=== PATIENT | female | born 1980 | race Caucasian/White ===

== ENCOUNTER 2024-07-19 12:47 | Emergency (ER) | payer OTHER, SELFPAY ==
[2024-07-19 13:04] VITALS: BP 178/104
[2024-07-19 13:29] LABS: Urine Albumin 2+ (Neg - Trace); Urine Bilirubin Negative (Negative); Urine Character Clear (Clear); Urine Color Yellow; Urine Glucose Negative (Negative); Urine Ketone Negative (Negative); Urine Leukocyte 3+ (Negative); Urine Nitrite Negative (Negative); Urine Occult Blood 4+ (Negative); Urine Specific Gravity 1.025 (<1.030); Urine Urobilinogen Negative (Neg - 1+)
[2024-07-19 13:49] LABS: Urine Mucus Few; Urine Squamous Cell 26-30 /LPF (Few)
[2024-07-19 13:50] LABS: Urine Bacteria Moderate (Negative)
--- NOTE | 2024-07-19 14:32 | ED.GENMED ---
History of Present Illness
General
Chief Complaint: Flank Pain
Source: patient
Time Seen by Provider: 07/19/24 14:01
History of Present Illness
History of Present Illness:
44-year-old female presents to the emergency room complaining of left flank pain. Pain began 2 to 3 days ago. The pain waxes and wanes in intensity. She has associated nausea. No fever. Patient states she has a history of immuno suppression and
receives infusions of IVIG. Also has a history of lymphoma.
Phy Exam
Physical Exam
Physical Exam:
General: Awake, Alert, Oriented X3. No acute distress. High BMI
Vitals: Hypertension
Head: Atraumatic
Eyes: Pupils equal, EOMI
Throat: Airway intact, no exudates
Neck: Trachea midline
Lungs: Clear and equal b/l
Heart: Regular rate, no murmurs
Abd: Soft, left upper quadrant tenderness to palpation, No pulsatile mass
Back: Positive CVA tenderness to percussion on the left
Neuro: Nonfocal
Skin: Warm, dry, no rash
Extremities: pulses equal b/l, no edema
Course
Orders/Labs/Results
Orders:
Orders
07/19/24 12:59
Urinalysis Reflex To Culture Urgent
Date Specimen was Collected: 07/19/24
Time Specimen was Collected: 12:49
Urine Microscopic Reflex Cult Urgent
Urine Culture Urgent
CESAR Source: U
Specimen Description:
Date Specimen was Collected: 07/19/24
Time Specimen was Collected: 12:49
07/19/24 14:31
CT Abd/pel Without Iv Or Oral Urgent
Comment:
Reason For Exam: left flank pain
07/19/24 15:16
Basic Metabolic Panel Urgent
Complete Blood Count/With Diff Urgent
HCG, Serum Qualitative Screen Urgent
Comment: ADD ON
07/19/24 15:19
Add On- LAB Urgent
Tests Added?: qual hcg
07/19/24 18:35
Cephalexin Monohydrate [Keflex] 500 mg PO NOW STA
Abnormal Lab Results
07/19/24 07/19/24
12:59 15:16
WBC 3.0 L 10^3/uL
(4.8-10.8)
Hct 35.9 L %
(37.0-47.0)
MCV 80.0 L fL
(81.0-99.0)
RDW 16.8 H %
(11.5-14.5)
Plt Count 72 L 10^3/uL
(130-400)
MPV 10.8 H fL
(7.4-10.4)
Absolute Lymphs (auto) 0.6 L 10^3/uL
(1.2-3.4)
Immature Gran % 1.3 H %
(0-0.5)
Lymphocytes % 19.4 L %
(20.5-51.1)
Chloride 108 H mmol/L
(98-107)
Glucose 107 H mg/dl
(70-99)
Ur Occult Blood Reflex 4+ A
(Negative)
Leukocyte Esterase Rfl 3+ A
(Negative)
Urine RBC 7-10 A /HPF
(0-2)
Urine Bacteria (Reflex) Moderate A
(Negative)
Urine Albumin (Reflex) 2+ A
(Neg - Trace)
07/19/24 15:16
07/19/24 15:16
Vital Signs
Initial and Last Documented VS:
Initial Vital Signs
Temp Pulse Resp BP Pulse Ox
98.5 F 79 17 178/104 96
07/19/24 13:04 07/19/24 13:04 07/19/24 13:04 07/19/24 13:04 07/19/24 13:04
Last Documented Vital Signs
Temp Pulse Resp BP Pulse Ox
98.5 F 81 20 150/82 97
07/19/24 13:04 07/19/24 15:26 07/19/24 15:26 07/19/24 19:00 07/19/24 15:26
MDM/Problems Addressed
Differential Diagnosis Includes:
Kidney stone, muscle strain, urinary tract infection, pyelonephritis
MDM/Problems Addressed:
Patient presents with left flank pain. Workup here shows a mildly low white count which is consistent with her previous labs. Renal function is normal. Urine shows some blood a few WBCs but also a fair amount of squamous epithelial cells. CT
obtained which does not show any acute abnormalities. CT did note nodules which require follow-up. Patient has had nodules before. She is known to [facility] where she has surveillance imaging. She will notify them of these findings.
Copy of her CT report provided to her. Source of the patient's discomfort is not entirely clear though there is no evidence for an acute unstable process. Given her abnormal urinalysis and immunocompromise state will cover with Keflex though this
may be contaminant. Patient stable for discharge home and outpatient follow-up.
*Radiology
Radiology exam reviewed: radiology read reviewed
*Pulse Oximetry
Patient hypoxic: no
*Critical Care Note
Total Time (30-74mins, 75-104mins- exclusive of procedures): Not Applicable
ED Attending Note
-
Portions of this chart may have been created with voice recognition software.� Occasional wrong word or��sound alike� substitutions may have occurred due to the inherent limitations of voice recognition software.
Discharge Plan
Departure
Patient Disposition: Home (Routine Discharge)
Date of Disposition: 07/19/24
Time of Disposition: 18:36
Patient with high blood pressure during this ER visit?: No
Condition: Good
Discharge Problem:
Acute flank pain
Instructions: Flank Pain (DC), BLOOD PRESSURE
Prescriptions:
New
cephalexin 500 mg capsule
500 mg PO BID 7 Days Qty: 14 0RF
Referrals:
Nader Crowe MD [Family Provider] -
Interventions
Interventions:
*Risk Screen - Suicide Last Done: 07/19/24 13:09
*General Assessment Last Done: 07/19/24 13:09
*Neglect/Abuse Screening Last Done: 07/19/24 13:09
*ED- Fall Risk Assessment Last Done: 07/19/24 19:10
*ED COVID-19 Vaccine History Last Done: 07/19/24 13:09
*Nursing Disposition Last Done: 07/19/24 19:10
IM-Wxtvnq-Bzjnwhvhdn Assessment Last Done: 07/19/24 15:27
ED-Female Genitourinary Assessment Last Done: 07/19/24 15:27
Discharge Date and Time
Discharge Date/Time: 07/19/24 19:28
Print Language: ALBANIAN
[2024-07-19 15:07] VITALS: BMI 49.5
[2024-07-19 15:26] VITALS: BP 121/91
[2024-07-19 15:39] LABS: % Basophils 1.3 % (0-2); % Eosinophils 4.3 % (0-6); % Immature Granulocytes 1.3 % (0-0.5); % Lymphocytes 19.4 % (20.5-51.1); % Monocytes 7.7 % (1.7-9.3); Absolute Eosinophils 0.1 10^3/uL (0-0.7); Absolute Lymphocytes 0.6 10^3/uL (1.2-3.4); Absolute Monocytes 0.2 10^3/uL (0.1-0.6); Hematocrit 35.9 % (37.0-47.0); Hemoglobin 12.3 g/dL (12.0-16.0); Mean Corp Hgb Conc. 34.3 g/dL (33.0-37.0); Mean Corpuscular Hgb 27.4 pg (27.0-31.0); Mean Platelet Volume 10.8 fL (7.4-10.4); Nucleated Red Blood Cells % 0 %; Platelet Count 72 10^3/uL (130-400); Red Blood Cell Count 4.49 10^6/uL (4.20-5.40); Red Cell Dist. Width 16.8 % (11.5-14.5)
[2024-07-19 15:48] LABS: Blood Urea Nitrogen 10 mg/dl (7-17); Calcium 9.3 mg/dl (8.4-10.2); Carbon Dioxide 24 mmol/L (22-30); Chloride 108 mmol/L (98-107); Estimated Creatinine Clearance > 125 ml/min; Glucose 107 mg/dl (70-99); Potassium 3.6 mmol/L (3.5-5.1); Sodium 142 mmol/L (135-145); eGFR > 60.00
[2024-07-19 16:33] LABS: HCG, Serum Qualitative Screen Negative
[2024-07-19 18:08] VITALS: BP 150/92
[2024-07-19 19:00] VITALS: BP 150/82
[2024-07-19] MEDS: KEFLEX 500 MG PO (19:07)
== END 2024-07-19 19:28 | disposition home or self-care (01) ==
LOC: EMR 12:47
PROVIDERS: Emergency Medicine; EMERGENCY PHYSICIAN Emergency Medicine; FAMILY PHYSICIAN Family Medicine
DX: R10.9 Unspecified abdominal pain (principal); R11.0 Nausea; Z85.72 Personal history of non-Hodgkin lymphomas; Z88.1 Allergy status to other antibiotic agents
CPT/HCPCS: 99284; 74176; 80048; 81003; 81015; 84703; 85025; 87086

== ENCOUNTER 2024-11-24 19:28 | Emergency (ER) | payer OTHER, SELFPAY ==
[2024-11-24 19:30] VITALS: BP 169/84
--- NOTE | 2024-11-24 20:33 | ED.GENMED ---
History of Present Illness
General
Chief Complaint: DVT/Possible Blood Clot
Source: patient
Exam Limitations: none
Time Seen by Provider: 11/24/24 20:08
Nursing documentation reviewed up to this point in time: agreed with
History of Present Illness
History of Present Illness:
Patient to ED with complaint of pain and swelling to LLE. States she injured leg approx 2.5 weeks ago, sustained a large hematoma below left knee. States she started to improve but now notes painful hard lump at site of injury, swelling to lower
leg. SHe is concerned for DVT. No history of DVT. Denies fever/chill. Denies SOB, CP/pressure
Past History
Past History
ED Past Medical History: HTN and Psychiatric (anxiety)
Review of Systems
Review of Systems
Allergies reviewed?: Yes
All Other Systems: ROS reviewed and negative except as documented in HPI and ROS
Constitutional: Reports no symptoms
EENT: Reports no symptoms
Respiratory: Reports no symptoms
Cardiac: Reports no symptoms
ABD/GI: Reports no symptoms
: Reports no symptoms
Musculoskeletal: Reports other (Pain and swelling to LLE)
Skin: Reports no symptoms (Pain and swelling to left lower leg below knee. )
Neurological: Reports no symptoms
Psychiatric: Reports no symptoms
Phy Exam
General Physical Exam
General Presentation: well appearing and no apparent distress
General age: appears stated age
General Skin: warm and dry
General Habitus: normal
General Mental: alert
General Hydration: appears well hydrated
Musculoskeletal Exam
Musculoskeletal Exam: full ROM and neuro vasc intact
Skin Exam
Skin Exam: warm/dry, no rash and other (Old bruising noted toleft lower leg. Hematoma just below left knee)
Psychiatric Exam
Psychiatric Exam: normal mood/affect
Course
Orders/Labs/Results
Orders:
Orders
11/24/24 20:32
US Periph Venous LOWER Ext LT Urgent
Comment:
Reason For Exam: pain redness swelling
Vital Signs
Initial and Last Documented VS:
Initial Vital Signs
Temp Pulse Resp BP Pulse Ox
97 F 75 16 169/84 95
11/24/24 19:30 11/24/24 19:30 11/24/24 19:30 11/24/24 19:30 11/24/24 19:30
Last Documented Vital Signs
Temp Pulse Resp BP Pulse Ox
97 F 71 19 139/86 95
11/24/24 19:30 11/24/24 20:47 11/24/24 21:16 11/24/24 20:47 11/25/24 22:17
*Radiology
Radiology exam reviewed: radiology read reviewed
*Pulse Oximetry
SaO2: 95
Oxygen Mode of Delivery: Room air
Patient hypoxic: no
*Critical Care Note
Total Time (30-74mins, 75-104mins- exclusive of procedures): Not Applicable
Update Note
Update Note:
Patient to ED with complaint of pain and swelling to lLE. Had a large hematoma to site just below left knee. Hematoma still present. Old blood migrating down leg to ankle. US neg for DVT. Will encourage warm compresses to site. Continue tylenol
or ibuprofent for pain, close follow upw ith PCP.
ED Attending Note
-
Portions of this chart may have been created with voice recognition software.� Occasional wrong word or��sound alike� substitutions may have occurred due to the inherent limitations of voice recognition software.
Discharge Plan
Departure
Patient Disposition: Home (Routine Discharge)
Date of Disposition: 11/24/24
Time of Disposition: 21:38
Patient with high blood pressure during this ER visit?: No
Condition: Good
Covid-19: Not Applicable
Discharge Problem:
Hematoma of leg
Instructions: Taking care of bruises, Hematoma
Prescriptions:
No Action
cephalexin 500 mg capsule
500 mg PO BID 7 Days Qty: 14 0RF
Referrals:
Nader Crowe MD [Family Provider] - Next open appointment
Interventions
Interventions:
*Risk Screen - Suicide Last Done: 11/24/24 19:30
*General Assessment Last Done: 11/24/24 19:30
*Neglect/Abuse Screening Last Done: 11/24/24 19:30
*ED- Fall Risk Assessment Last Done: 11/24/24 20:39
*ED COVID-19 Vaccine History Last Done: 11/24/24 20:39
*Nursing Disposition Last Done: 11/24/24 21:43
ED- Cardiac Assessment Last Done: 11/24/24 20:41
ED- Pulmonary Assessment Last Done: 11/24/24 20:41
ED-Peripheral Vascular Assessment Last Done: 11/24/24 20:41
ED-Skin Assessment Last Done: 11/24/24 20:41
Discharge Date and Time
Discharge Date/Time: 11/24/24 21:50
Print Language: BENINESE
[2024-11-24 20:39] VITALS: BMI 46.1
[2024-11-24 20:47] VITALS: BP 139/86
== END 2024-11-24 21:50 | disposition home or self-care (01) ==
LOC: EMR 19:28
PROVIDERS: EMERGENCY PHYSICIAN Emergency Medicine; FAMILY PHYSICIAN Family Medicine
DX: S80.12XA Contusion of left lower leg, initial encounter (principal); X58.XXXA Exposure to other specified factors, initial encounter; I10 Essential (primary) hypertension
CPT/HCPCS: 99284; 93971

== ENCOUNTER 2025-04-06 14:37 | Emergency (ER) | payer OTHER, SELFPAY ==
[2025-04-06 14:54] VITALS: BP 140/92
[2025-04-06 15:38] LABS: Hematocrit 39.9 % (37.0-47.0); Hemoglobin 13.3 g/dL (12.0-16.0); Mean Corp Hgb Conc. 33.3 g/dL (33.0-37.0); Mean Corpuscular Volume 76.1 fL (81.0-99.0); Nucleated Red Blood Cells % 0 %; Red Cell Dist. Width 18.4 % (11.5-14.5)
[2025-04-06 15:42] LABS: HCG, Serum Qualitative Screen Negative
[2025-04-06 15:48] LABS: ALT (SGPT) 44 U/L (0-35); AST (SGOT) 37 U/L (14-36); Albumin 4.4 g/dl (3.5-5.0); Alkaline Phosphatase 160 U/L (38-126); Blood Urea Nitrogen 11 mg/dl (7-17); Calcium 9.0 mg/dl (8.4-10.2); Carbon Dioxide 21 mmol/L (22-30); Chloride 107 mmol/L (98-107); Glucose 93 mg/dl (70-99); Potassium 4.4 mmol/L (3.5-5.1); Sodium 135 mmol/L (135-145); Total Protein 7.0 g/dl (6.3-8.2); eGFR > 60.00
[2025-04-06 16:20] LABS: Platelet Count 81 10^3/uL (130-400)
--- NOTE | 2025-04-06 20:02 | ED.GENMED ---
History of Present Illness
General
Chief Complaint: Vaginal Bleeding
Source: patient
Time Seen by Provider: 04/06/25 19:50
History of Present Illness
History of Present Illness:
44-year-old female with past medical history of non-Hodgkin's lymphoma (currently in remission), hypertension, anxiety and depression presents to the emergency department for evaluation after starting with vaginal bleeding around 5 AM this morning,
by 7 AM the bleeding had intensified and over the next few hours patient states that she was going through a large tampon and pad and saturating her underwear, contacted her HAND TUBE BENDER office who recommended patient come to the ER for further
evaluation. Patient notes that she also has a history of low platelets and on her last labs earlier this month patient states that they were 49, she did get an iron infusion about 1 week ago. Patient denies any fevers, chills, rigors. She does
note that while she was in the waiting room the bleeding lessened considerably. No other concerns presently.
Past History
Past History
ED Past Medical History: Cancer, HTN and Psychiatric (anxiety)
ED Past Surgical History: Cholecystectomy and Other
Social History
Tobacco: Non-smoker
Alcohol: None
Drug: None
Living: with family
Review of Systems
Review of Systems
All Other Systems: ROS reviewed and negative except as documented in HPI and ROS
Phy Exam
Physical Exam
Physical Exam:
GENERAL: Alert , in no apparent distress
EYE: clear conjunctiva b/l
HEAD: NCAT
ENT: o/p clr, mmm.
CARDIAC: Regular rate and rhythm .
LUNGS: Clear breath sounds bilaterally, no acute respiratory distress, no wheezes/rales/rhonchi
ABDOMEN: Soft, without focal tenderness, no r/g, no cvat
PELVIC EXAM: Patient declines exam
NEUROLOGICAL: Alert and oriented
SKIN: Warm and dry, skin intact.
MUSCULOSKELETAL: well perfused.
PSYCH: Normal and appropriate interaction.
Scores
Heart Failure Risk
Heart Failure Risk Score: Not Applicable
Heart Score for Chest Pain Patients
STEMI patient?: Not applicable
Withdrawal Assessment of Alcohol
Withdrawal Assessment Completed?: Not applicable
Course
Orders/Labs/Results
Orders:
Orders
04/06/25 14:58
Test Result ONCE
04/06/25 15:10
Complete Blood Count/With Diff Urgent
Comprehensive Metabolic Panel Urgent
HCG, Serum Qualitative Screen Urgent
04/06/25 15:11
Type And Crossmatch [Type+Screen] Urgent
04/06/25 20:01
Tranexamic Acid [Cyklokapron] 1,300 mg PO NOW STA
Abnormal Lab Results
04/06/25
15:10
MCV 76.1 L fL
(81.0-99.0)
MCH 25.4 L pg
(27.0-31.0)
RDW 18.4 H %
(11.5-14.5)
Plt Count 81 L 10^3/uL
(130-400)
Absolute Lymphs (auto) 0.5 L 10^3/uL
(1.2-3.4)
Neutrophils % 78.2 H %
(42.2-75.2)
Lymphocytes % 11.1 L %
(20.5-51.1)
Carbon Dioxide 21 L mmol/L
(22-30)
AST 37 H U/L
(14-36)
ALT 44 H U/L
(0-35)
Alkaline Phosphatase 160 H U/L
(38-126)
04/06/25 15:10
04/06/25 15:10
Vital Signs
Initial and Last Documented VS:
Initial Vital Signs
Temp Pulse Resp BP Pulse Ox
98.8 F 85 16 140/92 97
04/06/25 14:54 04/06/25 14:54 04/06/25 14:54 04/06/25 14:54 04/06/25 14:54
Last Documented Vital Signs
Temp Pulse Resp BP Pulse Ox
98.8 F 85 18 101/60 97
04/06/25 14:54 04/06/25 14:54 04/06/25 18:00 04/06/25 20:15 04/06/25 20:02
MDM/Problems Addressed
Differential Diagnosis Includes:
Dysfunctional uterine bleeding
Menorrhagia
Anemia
Malignancy
Uterine leiomyomata
MDM/Problems Addressed:
44-year-old female presenting to the ER for evaluation of heavy vaginal bleeding which started today, at time of my exam patient states bleeding has nearly resolved. Patient reassured by her labs especially her platelet count noting that 81 is
higher than normal for her. Hgb 13.3. Patient ultimately wanting to go home. Has an appointment for later in April with ENGINEERING SURVEYOR. Will Rx lysteda 1300mg TID x 5 days. Will notify ENGINEERING SURVEYOR team
Chronic conditions affecting care: Cancer
*Pulse Oximetry
SaO2: 97
Oxygen Mode of Delivery: Room air
Patient hypoxic: no
*Critical Care Note
Total Time (30-74mins, 75-104mins- exclusive of procedures): Not Applicable
Patient Management
Discussion with other providers: Dry Cleaning Teacher
Escalation/DeEscalation of care consider admission/obs:
ENGINEERING SURVEYOR team aware. Will help expedite a follow up visit
ED Attending Note
-
Portions of this chart may have been created with voice recognition software.� Occasional wrong word or��sound alike� substitutions may have occurred due to the inherent limitations of voice recognition software.
Discharge Plan
Departure
Patient Disposition: Home (Routine Discharge)
Date of Disposition: 04/06/25
Time of Disposition: 20:02
Patient with high blood pressure during this ER visit?: Yes
Discharge Problem:
Menorrhagia
Instructions: Heavy Periods (DC)
Prescriptions:
New
tranexamic acid 650 mg tablet
1,300 mg PO TID Qty: 27 0RF
No Action
cephalexin 500 mg capsule
500 mg PO BID 7 Days Qty: 14 0RF
Referrals:
Nader Crowe MD [Family Provider]
Interventions
Interventions:
*General Assessment Last Done: 04/06/25 14:54
*Neglect/Abuse Screening Last Done: 04/06/25 14:54
*ED COVID-19 Vaccine History Last Done: 04/06/25 20:18
*ED Influenza Vaccine History Last Done: 04/06/25 20:18
[facility] Fall Risk Assessment Tool Last Done: 04/06/25 20:14
*Risk Screen - Suicide (C-SSRS) Last Done: 04/06/25 14:54
*Nursing Disposition Last Done: 04/06/25 20:18
ED-Female Genitourinary Assessment Last Done: 04/06/25 20:17
Discharge Date and Time
Discharge Date/Time: 04/06/25 20:18
Print Language: GREENLANDIC
[2025-04-06] MEDS: CYKLOKAPRON 1300 MG PO (20:13)
[2025-04-06 20:15] VITALS: BP 101/60
== END 2025-04-06 20:18 | disposition home or self-care (01) ==
LOC: EMR 14:37
PROVIDERS: Emergency Medicine; EMERGENCY PHYSICIAN Student in an Organized Health Care Education/Training Program; FAMILY PHYSICIAN Family Medicine; OTHER PHYSICIAN Internal Medicine Medical Oncology; OTHER PHYSICIAN Obstetrics & Gynecology
DX: N92.0 Excessive and frequent menstruation with regular cycle (principal); Z85.72 Personal history of non-Hodgkin lymphomas; I10 Essential (primary) hypertension; Z90.49 Acquired absence of other specified parts of digestive tract
CPT/HCPCS: 99283; 80053; 84703; 85025; 86850; 86900; 86901